=== PATIENT | male | born 1995 | race Caucasian/White ===

== ENCOUNTER 2018-05-04 10:21 | Emergency (ER) | payer SELFPAY ==
[~2018-05-04] VITALS: Ht 180.3 cm; Wt 79.4 kg
[2018-05-04 10:33] VITALS: BP 150/84; Ht 180.3 cm; Wt 79.4 kg
[2018-05-04 10:57] LABS: microscopic required? NO
[2018-05-04 11:07] LABS: urine erythrocyte NEGATIVE (NEGATIVE)
== END 2018-05-04 11:15 | disposition home or self-care (01) ==
LOC: ED 10:21
PROVIDERS: Specialist
DX: N48.89 Other specified disorders of penis (principal); R30.0 Dysuria
CPT/HCPCS: 87491; 87591; J7030